=== PATIENT | female | born 1975 ===

== ENCOUNTER 2022-07-06 09:46 | Outpatient (REF) | payer SELFPAY ==
--- NOTE | 2022-07-06 11:16 | MHC.AU.HA3 ---
Hearing Instrument Follow-Up- Binaural Date of Visit: 07/06/22 Right Ear: Hussain, Model, Color, Serial Number: Dawn Egan AI [address] [facility] Serial #: [id number] Color: Medium brown City Attorney Repair Warranty: 07/07/2025 City Attorney Loss and Damage Warranty: 07/07/2025 [facility] Service Plan: 06/22/2023 Battery Size: 312 Thermometer Tester/Slim Tube: 115/50 gain printed circuit boards laminator Type of Wax Guard: Hear Clear Dispensed By: [facility] Date of Fittin06/22/2022 Left Ear: Hussain, Model, Color, Serial Number: Dawn Egan AI [address] [facility] Serial #: [id number] Color: Medium brown City Attorney Repair Warranty: 07/07/2025 City Attorney Loss and Damage Warranty: 07/07/2025 [facility] Service Plan: 06/22/2023 Battery Size: 312 Thermometer Tester/Slim Tube: 115/50 gain printed circuit boards laminator Type of Wax Guard: Hear Clear Dispensed By: [facility] Date of Fittin06/22/2022 Follow-Up Summary: Arrived 20 minutes late to 30 minute appointment. Mindi reported that overall she is doing well with the hearing aids. She is noticing benefit both at home and at work as she is better able to hear speech as well as environmental sounds. She reported that certain sounds (e.g., the microwave, machines beeping at work) are too loud although not uncomfortable. Attempted adjustments; however, Mindi continually preferred the initial settings. Data logging showed only about 2 hours of use per day. With that, counseled extensively on the importance of consistent use especially in acclimating to the hearing aids. Otherwise, the physical fit is reportedly comfortable and she has had no issues with insertion or removal. Recommendations: Hearing instrument maintenance in 6 months, or sooner if needed. Please contact our clinic with any questions or concerns. Diagnosis Code(s):Primary Diagnosis: H90.6 Mixed Hearing Loss, Bilateral Secondary Diagnosis: H69.93 Unspecified Eustachian Tube Dysfunction, Bilateral Signature: Provider: Janet Logan, [facility]
== END 2022-07-06 09:47 | disposition home or self-care (01) ==
LOC: HO.HAP 09:46
PROVIDERS: Visit Provider Internal Medicine
DX: Z13.89 Encounter for screening for other disorder (principal)

== ENCOUNTER 2024-08-28 10:26 | Outpatient (REF) | payer OTHER, SELFPAY ==
--- OUTSIDE RECORDS SUMMARY | 2024-08-28 11:21 | XMS_ITS | Clinical Summary ---
Author Organization [facility] Address [address] [place] [address] Care Team Providers Care Supervisor Costuming Name Role Phone Lorena Monk NP Primary Care Provider Source Comments PLEASE NOTE, if this patient is a minor, it may be UNLAWFUL to discuss sensitive information that is contained in these records (such as FAMILY PLANNING, MENTAL HEALTH or SUBSTANCE ABUSE) with the minor patient's parent or other person without the patient's specific authorization.[facility] Allergies Active Allergy Reactions Criticality Noted Date Comments Yogurt 07/25/2022 Other reaction(s): SORE THROAT, YOGURT Medications omega 9-blp-naa-fish oil 1,000 mg (120 mg-180 mg) capsuleIndicati ons:Elevated LDL cholesterol level Take 1 Capsule by mouth once daily 90 Capsule 1 3 Active valACYclovir (VALTREX) 1 gram tablet Take 1,000 mg by mouth once daily 4 Active loratadine (CLARITIN) 10 mg tablet Take 1 Tablet by mouth once daily as needed for allergies 90 Tablet 3 5 Active calcium carbonate-vit D3-min 600 mg-10 mcg (400 unit) tabletIndicatio ns:Vitamin D deficiency Take 1 Tablet by mouth 3 (three) times daily with meals 90 Tablet 3 5 Active cetirizine (ZYRTEC) 10 mg tabletIndicatio ns:Seasonal allergic rhinitis, unspecified trigger Take 1 Tablet by mouth once daily 90 Tablet 1 3 08/04/19 25 Discontinu ed(Reorder (E-Cancel Not Sent)) calcium carbonate-vit D3-min 600 mg-10 mcg (400 unit) tabletIndicatio ns:Vitamin D deficiency Take 1 Tablet by mouth 3 (three) times daily with meals 90 Tablet 4 08/04/19 25 Discontinu ed(Therapy completed/ Not needed) cetirizine (ZYRTEC) 10 mg tabletIndicatio ns:Seasonal allergic rhinitis, unspecified trigger Take 1 Tablet by mouth once daily 90 Tablet 3 5 08/04/19 25 Discontinu ed(Therapy completed/ Not needed) Active Problems Problem Noted Date Diagnosed Date Overweight (BMI 25.0-29.9) 07/30/2021 Elevated LDL cholesterol level 07/28/2018 Allergic rhinitis 08/06/2016 Prediabetes 08/15/2015 Vitamin D deficiency 07/01/2014 GERD (gastroesophageal reflux disease) 5 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 Meng. Hx of thyroiditis 2011 Overview (12/30/2012): Seen by [facility]. Resolved Problems Problem Noted Date Diagnosed Date Resolved Date S/P x 2 07/25/2022 Overview (12/30/2012): A1. Encounters Date Type Department Care Team Description 08/03/2024 4:00 PM EDT Office Visit [address] [phone] Lorena Monk NP Routine general medical examination at a health care facility (Primary Dx); Cholesteatoma of attic of right ear; Vitamin D deficiency; Seasonal allergic rhinitis, unspecified trigger; Screen for colon cancer from Last 3 Months Immunizations Immunization Administration Dates Next Due Flu, Preservative Free 02/12/2023,02/27/2021, Hep A, adult 10/12/2022 Hep B, Adult/Adol (ENERGIX/RECOMBIVAX) 01/19/2008,11/21/2007,07/22/2007 INFLUENZA, SEASONAL, INJECTABLE 03/13/20 15,04/23/2011,04/20/2010,2008,03/24/2008 MMR (MMR II/Priorix) 11/21/2007,07/22/2007 Moderna COVID-19 (Spikevax), Mrna, Lnp-s, Pf, 50 Mcg/0.5 Ml, 12yr+ 07/31/2023 PPD 10/14/2007 TDAP 05/03/2015,04/22/2011 Td(adult),2 Lf tetanus toxoid,preservative free 11/21/2007,07/22/2007 Family History Medical History Relation Name Comments Diabetes Father High Cholesterol Mother Hypertension Mother Relation Name Status Comments Father Alive Mother Alive Social History Tobacco Use Types Packs/Day Years Used Date Smoking Tobacco: Never Passive Smoke Exposure: Never Smokeless Tobacco: Never Tobacco Cessation:Counseling Given: Yes Alcohol Use Standard Drinks/Week Comments No 0 (1 standard drink = 0.6 oz pur e alcohol) Social Connections Answer Date Recorded Connectedness 1 08/03/2024 Financial Resource Strain Answer Date R ecorded Financial Resource Strain 1 2024 Stress Answer Date Recorded Stress 1 08/03/2024 Physical Activity Answer Date Recorded Physical Activity 0 08/18/2021 Food Insecurity Answer Date Recorded Food 1 08/03/2024 Transportation Needs Answer Date Record ed Transportation 1 08/03/2024 Housing Stability Answer Date Recorded Housing 1 08/03/2024 Safety and Environment Answer Date Maxx rded Safety 1 08/03/2024 Utilities Answer Date Recorded Utilities 1 08/03/2024 Employment Answer Date Recorded Stress 0 08/18/2021 Comments No Sex and Gender Information Value Date Recorded Sex Assigned at Female 04/15/2017 11:28 AM PST Legal Sex Female 11:36 AM PDT Gender Identity Female 04/15/2017 11:28 AM PST Sexual Orientation Straight 04/15/2017 11 :28 AM PST Occupation Industry Job Start Date Job End Date 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 [employer] Not on file Not on file Not on file Last Filed Vital Signs Vital Sign Reading Time Taken Comments Blood Pressure 117/72 10/02/2023 3:21 PM EDT Pulse 69 10/02/2023 3:21 PM EDT Temperature 36.4 ??C (97.5 ??F) 07/31/2023 8:47 AM ED T Respiratory Rate 16 07/31/2023 8:47 AM EDT Oxygen Saturation 100% 07/31/2023 8:47 AM EDT Inhaled Oxygen Concentration - - Weight 49.9 kg (110 lb) 03/02/2024 9:53 AM EDT Height 139.7 cm (4' 7 ) 03/02/2024 9:53 AM EDT Body Mass Index 25.57 03/02/2024 9:53 AM EDT Plan of Treatment Health Maintenance Due Date Last Done Comments Dental FMX/Pano 1977 HPV Screening 1975 Breast Cancer Screening (Mammogram) 2017 CT Colonography 2022 Colonoscopy 2022 Fecal DNA 2022 Flexible Sigmoidoscopy 2022 Dental BW 10/18/2023 10/15/2022, 04/16/2022 [id number] () 01/12/2024 024 Imm-Influenza (#1) 2024 02/12/2023, 1 , 02/20/2018 (Managed by Outside Provider), Additional history exists Colorectal Cancer Screening 03/03/2024 FIT/gFOBT 03/03/2024 03/03/2023 Diabetes Screening 07/30/2024 07/31/2023, 0 07/31/2023, 08/06/2022, Additional history exists Dental Examination 08/01/2024 07/31/2023, 0 10/15/2022, 04/16/2022 Dental Perio Charting 08/01/2024 07/31/2023, 022 Dental Prophy 08/01/2024 07/31/2023, 06/0 09/2022, 04/16/2022 Hypertension Screening (#1) 10/01/2024 Imm-DTaP/Tdap/Td (3 - Td or Tdap) 05/03/2025 05/03/2015, 04/22/2011, 11/21/2007, Additional history exists Annual Preventive Care Visit 08/03/2025, 07/31/2023, 10/12/2022, Additional history exists Anxiety Screening 08/03/2025 08/03/2024 Relationship Safety Screening/Counseling 08/03/2025 08/03/2024, 01/29/2023, 08/18/2021, Additional history exists Tobacco Screening 08/03/2025 08/03/2024, 01/29/2023 Cervical Cancer Screening 10/13/2027 Pap + HPV 10/13/2027 10/12/2022 Pap Smear 10/13/2027 10/12/2022, 03/13, 03/31/2015, Additional history exists Lipid Screening 07/30/2028 07/31/2023, 07/12, 06/12/2021, Additional history exists Imm-Hepatitis B Completed 01/19/2008, 11/10, 07/22/2007 HIV Screening Completed 04/22/2018 Hepatitis C Screening Completed 08/06/2022 Alcohol and Drug Screen Completed 08/04/19 25, 07/31/2023, 07/25/2022, Additional history exists Depression Annual Screen Completed 025, 07/31/2023, 04/22/2018 Cervical Ablation/Cold-Knife Conization Discontinued Cervical Cryotherapy Discontinued Colposcopy Discontinued Endometrial Biopsy Discontinued Excision/Leep Discontinued HPV Genotyping Discontinued Vaginal Pap Discontinued Vulvoscopy Discontinued Procedures Procedure Name Priority Date/Time Associated Diagnosis Comments COMP PERIODONTAL EVALUATION - NEW/EST PATIENT Routine 07/31/2023 1:00 PM EDT Caries of enamel (incipient) Full PROPHYLAXIS - ADULT Routine 07/31/2023 1:00 PM EDT Caries of enamel (incipient) Full PERIODIC ORAL EVALUATION ESTABLISHED PATIENT Routine 07/31/2023 1:00 PM EDT Caries of enamel (incipient) HEMOGLOBIN GLYCOSYLATED A1C Routine 07/31/2023 9:27 AM EDT Routine general medical examination at a health care facility LIPID PANEL Routine 07/31/2023 9:27 AM EDT Routine general medical examination at a health care facility Elevated LDL cholesterol level FECAL GLOBIN BY IMMUNOCHEMISTRY (FIT) Routine 03/03/2023 8:00 PM EDT Colon cancer screening BITEWINGS - FOUR RADIOGRAPHIC IMAGES Routine 10/15/2022 9:40 AM EDT Encounter for dental examination THIN PREP IMAGE PAP + HPV RNA E6/E7 W/RFLX HPV 16, 18/45 Routine 10/12/2022 3:55 PM EDT Well woman exam Routine cervical smear HEPATITIS C AB W/RFLX HCV RNA, QT, RT PCR Routine 08/06/2022 10:30 AM EDT Need for hepatitis C screening test ANTIBODY HIV-1&HIV-2 SINGLE RESULT Routine 04/22/2018 9:42 AM EST Health care maintenance from Last 3 Months or Most Recently Relevant to Health Maintenance Results * (ABNORMAL) HEMOGLOBIN GLYCOSYLATED A1C (07/31/2023 9:27 AM EDT) HEMOGLOBIN A1C 6.1(H) <5.7 % of total Hgb [facility] Comment: For someone without known diabetes, a hemoglobin A1c value between 5.7% and 6.4% is consistent with prediabetes and should be confirmed with a follow-up test. For someone with known diabetes, a value <7% indicates that their diabetes is well controlled. A1c targets should be individualized based on duration of diabetes, age, comorbid conditions, and other considerations. This assay result is consistent with an increased risk of diabetes. Currently, no consensus exists regarding use of hemoglobin A1c for diagnosis of diabetes for children. Blood Blood / Unknown 07/31/2023 9 :27 AM EDT 07/31/2023 9:27 AM EDT Narrative [employer] [facility] [employer] - 08/04/2023 5:12 AM EDT FASTING:YES us Ata Mccall MD LAB - BLOOD DRAW Edited Result - Final [facility] [address] [place] [id number], [facility] [address] [phone] * (ABNORMAL) LIPID PANEL (07/31/2023 9:27 AM EDT) CHOLESTEROL, TOTAL 227(H) <200 mg/dL [facility] HDL CHOLESTEROL 61 > OR = 50 mg/dL [facility] TRIGLYCERIDES 87 <150 mg/dL [facility] LDL-CHOLESTEROL 147(H) 99 mg/dL (calc) [facility] Comment: Reference range: <100 Desirable range <100 mg/dL for primary prevention; ?? <70 mg/dL for patients with CHD or diabetic patients with > or = 2 CHD risk factors. LDL-C is now calculated using the Guera calculation, which is a validated novel method providing better accuracy than the Friedewald equation in the estimation of LDL-C. Isreal STUBBS et al. [place]. 2013;310(19): 5330-9261 (http://education.Fashion Playtes/faq/PQN472) CHOL/HDLC RATIO 3.7 <5.0 (calc) [facility] NON-HDL CHOLESTEROL 166(H) <130 mg/dL (calc) [facility] Comment: For patients with diabetes plus 1 major ASCVD risk factor, treating to a non-HDL-C goal of <100 mg/dL (LDL-C of <70 mg/dL) is considered a therapeutic option. Blood Blood / Unknown 07/31/2023 9 :27 AM EDT 07/31/2023 9:27 AM EDT Narrative [facility] - 08/04/2023 5:12 AM EDT FASTING:YES Ata Mccall MD LAB - BLOOD DRAW Final Result [facility] [address] [place] [phone], [facility] [address] [place] [phone] * FECAL GLOBIN BY IMMUNOCHEMISTRY (FIT) (03/03/2023 8:00 PM EDT) FECAL GLOBIN BY IMMUNOCHEMISTRY See Note [facility] Comment: ??FECAL GLOBIN BY IMMUNOCHEMISTRY ?Micro Number: ?[id number] ??Test Status: ? Final ??Specimen Source: ?? Not given ??Specimen Quality: ??Adequate ??Fecal Globin: ?Not Detected Stool Stool specimen / Unknown 03/03/2023 8:00 PM EDT 03/05/2023 10:45 PM EDT Lorena Monk NP LAB - NO BLOOD DRAW Final Re sult [facility] [address] [place] [id number], [facility] [address] [phone] * THIN PREP IMAGE PAP + HPV RNA E6/E7 W/RFLX HPV 16, 18/45 (10/12/2022 3:55 PM EDT) CLINICAL INFORMATION See Note [facility] Comment:Routine exam LMP See Note [facility] Comment:[id number] PREV. PAP See Note [facility] Comment:NONE GIVEN PREV. BX See Note [facility] Comment:NONE GIVEN SOURCE See Note [facility] Comment:Cervix STATEMENT OF ADEQUACY See Note [facility] Comment: Satisfactory for evaluation. Endocervical/transformation zone component absent. INTERPRETATION/RESU LT See Note [facility] Comment:Negative for intraep ithelial lesion or malignancy. COMMENT See Note [facility] Comment: This Pap test has been evaluated with computer assisted technology. [employer] See Note [facility] [employer] Comment: EXJ, CT(ASCP) CT Screening Location: [place] [address] COMMENT [facility] HPV MRNA E6/E7 Not Detected Not Detected [facility] Comment: Methodology: Broom Handle Dipper-Mediated Amplification This assay detects E6/E7 viral messenger RNA (mRNA) from 14 high-risk HPV types (16,18,31,33,35,39,45,51,52,56,58,59,66,68). Cervical sources are required for HPV testing. If a vaginal source from a patient who has had a total hysterectomy with removal of cervix was submitted, please contact the testing laboratory for alternative testing options. For additional information, please refer to http://education.AppShare/faq/NAC066n7 (This link if provided for information/ educational purposes only.) Swab Cervix uteri structure / Unknown 10/12/2022 3:55 PM EDT 10/15/2022 11:32 AM EDT Narrative [employer] - 10/17/2022 3:29 PM EDT EXPLANATORY NOTE: The Pap is a screening test for cervical cancer. It is not a diagnostic test and is subject to false negative and false positive results. It is most reliable when a satisfactory sample, regularly obtained, is submitted with relevant clinical findings and history, and when the Pap result is evaluated along with historic and current clinical information. us Lorena Monk NP LAB - NO BLOOD DRAW Final Re sult Performing Organization Address [facility] Co de Phone Number [facility] [address] [place] [id number], [facility] [address] [place] [phone] * HEPATITIS C AB W/RFLX HCV RNA, QT, RT PCR (08/06/2022 10:30 AM EDT) HEPATITIS C ANTIBODY NON-REACT JERALD NON-REACT JERALD [facility] SIGNAL TO CUT-OFF 0.04 <1.00 [facility] Comment: HCV antibody was non-reactive. There is no laboratory evidence of HCV infection. In most cases, no further action is required. However, if recent HCV exposure is suspected, a test for HCV RNA (test code 74254) is suggested. For additional information please refer to http://education.AppShare/faq/NHC49n8 (This link is being provided for informational/ educational purposes only.) Blood Blood / Unknown 08/06/2022 1 0:30 AM EDT 08/06/2022 10:31 AM EDT Narrative [employer] [facility] - 08/07/2022 2:17 AM EDT FASTING:YES us Lorena Monk CATH LAB MANAGER LAB - BLOOD DRAW Final Resul t Performing Organization Address [facility] Co de Phone Number [facility] [address] [place] [phone], [facility] [address] [phone] * HIV-1 & HIV-2 ANTIBODIES (04/22/2018 9:42 AM EST) [facility] Signature HIV 1 AND 2 ANTIBODY SCREEN NEGATIVE NEGATIVE [facility] Comment: This assay is a 4th generation assay allowing for earlier detection of HIV infection by detecting the presence of the HIV-1 p24 antigen as well as the traditional antibodies to HIV type 1 (including group O) and type 2. ??Use of a 4th generation assay is the current CDC recommendation for HIV screening. Blood specimen (specimen) Blood / Unknown 04/22/2018 9:42 AM EST 04/22/2018 9:[address] [facility] - 04/22/2018 1:24 PM EST [employer], [place] [address] Program Writer - Lakisha Zuniga MD [place] [id number] ORD# [id number] Ata Mccall MD LAB - BLOOD DRAW Final Result [address] [address], from Last 3 Months or Most Recently Relevant to Health Maintenance Insurance [employer] [place] [place] [address] DENTAL [facility]) Member Subscriber Plan / Payer (Ef fective 2022-Present) Name:Mindi Cates Relation to Subscriber:Self Name:Mindi Cates Payer ID:[id number] Group ID:Not on file Type:Indemnity Address: [address] [place] [id number] [employer] Care Teams Supervisor Costuming Relationship Specialty Start Date End Date Lorena Monk NP [address] [place] [address] PCP - General Internal Medicine 06/13/22
--- OUTSIDE RECORDS SUMMARY | 2024-08-28 11:22 | XMS_ITS | Data Portability ---
Author Organization [place] - [facility], Allergy Address [address] [facility] [address] [place] [address] Care Team Providers Care Battery Container Tester Name Role Phone LYSSA TOMAS Primary Care Provider Assessment Encounter Date Assessment Date Assessment LastModified by Organization Details LastModified Time 04/21/2024 04/21/2024 Both ears appear stable. No sign of recurrent cholesteatoma. Left tympanic membrane perforation is stable and providing ventilation to the middle ear space and therefore does not require any intervention. Recommend continuing with observation. Follow-up with PA in 1 year Not available 04/20/2024 15:31:34 Plan of Treatment Reminders Order Date Submit Date Provider Last Modified By Organization Details Last Modified Time Details Appointments Establish ed 10 2024 09:30A M JITENDRA KEITA MD Not available Not available Not available Lab None recorded. Referral None recorded. Procedures None recorded. Surgeries None recorded. Imaging None recorded. Medication Orders None recorded. Patient TargetsNo targets recorded. Patient InstructionsNo instructions recorded. Reason for Referral None Reported. Problems Name Problem SNOMED Code Status Onset Date Resolution Date Notes Provider Name and Address Organization Details Recorded Time Abnormal granulat ion tissue 05603136 Completed 201312/13/2023 Other abnormal granulat ion tissue; Note: Date Diagnose d: 04/06/20 14 3:41 PM (701.5) Not Available [facility] 4 02:59:24 Mixed conducti ve and sensorin eural hearing loss, bilatera l 079211686 Active 2015 Mixed conducti ve and sensorin eural hearing loss, bilatera l; Note: Date Diagnose d: 6 11:07 AM (H90.6) Not Available [facility] 4 02:59:24 Impacted cerumen in left ear 68509149779 06615 Active 2021 Impacted cerumen, left ear; Note: Date Diagnose d: 2 4:16 PM (H61.22) Not Available [facility] 4 02:59:21 Allergic rhinitis 28121026 Active 2015 Allergic rhinitis , unspecif ied; Note: Date Diagnose d: 6 2:55 PM (J30.9) [facility] 4 02:59:23 Mixed conducti ve and sensorin eural hearing loss of right ear 82251158593 105 Active 2016 Mixed conducti ve and sensorin eural hearing loss, unilater al, right ear with restrict ed hearing on the contrala teral side; Note: Date Diagnose d: 01/15/2017 11:00 AM (H90.A31 ) Not Available [facility] 4 02:59:20 Dysfunct ion of eustachi an tube 58819084 Active 2013 Eustachi an tube dysfunct ion; Note: Date Diagnose d: 4 12:48 PM (381.81) Not Available [facility] 4 02:59:23 Jaw pain 211888646 Active 2015 Periauri cular pain of TMJ origin; Note: Date Diagnose d: 5 10:06 AM (784.92) ; Start Date : 10/27/19 15 Jaw pain; Note: Date Diagnose d: 6 2:44 PM (R68.84) [mapped from ICD9 code: 784.92] Not Available [facility] 4 02:59:23 Impacted cerumen 84607485 Active 2013 Impacted cerumen; Note: Date Diagnose d: 4 12:48 PM (380.4) Not Available [facility] 4 02:59:20 Conducti ve hearing loss, bilatera l 925799071 Active 2021 Conducti ve hearing loss, bilatera l; Note: Date Diagnose d: 2 4:16 PM (H90.0) Not Available [facility] 4 02:59:21 Bilatera l temporom andibula r joint pain 47195617985 986884 Active 2018 Arthralg ia of bilatera l temporom andibula r joint; Note: Date Diagnose d: 9 2:07 PM (M26.623 ) Not Available [facility] 4 02:59:24 Marginal perforat ion of tympanic membrane 39912967 Active 2021 Other marginal perforat ions of tympanic membrane , left ear; Note: Date Diagnose d: 2 4:15 PM (H72.2X2 ) Not Available 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 4 02:59:23 Sensorin eural hearing loss in left ear 82997336072 109 Active 2016 Sensorin eural hearing loss, unilater al, left ear, with restrict ed hearing on the contrala teral side; Note: Date Diagnose d: 01/15/2017 11:00 AM (H90.A22 ) Not Available [facility] 4 02:59:22 Disorder of left Eustachi an tube 14064361746 26582 Active 2015 Other specifie d disorder s of Eustachi an tube, left ear; Note: Date Diagnose d: 6 2:58 PM (H69.82) Not Available [facility] 4 02:59:21 Follow-u p visit Active 2016 Medical surveill ance followin g complete d treatmen t; Note: Date Diagnose d: 7 3:19 PM (Z09) Not Available [facility] 4 02:59:22 Problem Notes None recorded. Medical Equipment None Reported. Allergies No known drug allergies Medications Name Sig Start Date Stop Date Status Note LastModified by Organization Details LastModified Time cetirizin e 10 mg tablet 04/21 completed Not Available Not Available Not Available valacyclo vir 1 gram tablet TAKE 1 TABLET BY MOUTH EVERY 12 HOURS FOR 5 DAYS 04/21 completed Not Available Not Available Not Available Ciloxan 0.3 % eye drops 04/21 completed Medicati on ID: [id number] D uration Value: 14 Prescri bed By Name: MASSIEL Morales nd Name: Ciloxan Send Method: E-Prescr ibed Sub s Allowed: subs OK Speci al Instruct ion: Instill 4 drops twice a day into the affected ear Medi cationGe nericNam e: Ciloxan Not Available Not Available Not Available omeprazol e 20 mg capsule,d elayed release 08/23 completed Medicati on ID: [id number] D uration Value: 90 Brand Name: omeprazo le Send Method: E-Prescr ibed Sub s Allowed: subs OK Medic ationGen ericName : omeprazo le Not Available Not Available Not Available methylpre dnisolone 4 mg tablets in a dose pack TAKE 1 TABLET (ORAL) PER PACKAGE DIRECTIO NS FOLLOW DIRECTIO NS PER PACK, TAKE WITH FOOD 04/21 completed Not Available Not Available Not Available Pelham 5 mg-325 mg tablet 1-2 tablet by mouth 04/21 completed Medicati on ID: [id number] D uration Value: 7 Prescri bed By Name: Tunde Feliz nd Name: Pelham Se nd Method: E-Prescr ibed Sub s Allowed: subs OK Medic ationGen ericName : Pelham Not Available Not Available Not Available amoxicill in 875 mg-potass ium clavulana te 125 mg tablet TAKE 1 TABLET BY MOUTH TWICE A DAY 04/21 completed Not Available Not Available Not Available TobraDex 0.3 %-0.1 % eye drops,yohan pension 4 drop 04/21 completed Medicati on ID: [id number] D uration Value: 14 Prescri bed By Name: Jitendra Keita M.D. Bra nd Name: TobraDex Send Method: E-Prescr ibed Sub s Allowed: subs OK Speci al Instruct ion: apply to affected ear(s) Abena hogan nGeneric Name: TobraDex Not Available Not Available Not Available diclofena c 1 % topical gel 04/15 completed Medicati on ID: [id number] B rand Name: diclofen ac sodium S end Method: E-Prescr ibed Sub s Allowed: subs OK Medic ationGen ericName : diclofen ac sodium Not Available Not Available Not Available GaviLyte- G 236 gram-22.7 4 gram-6.74 gram-5.86 gram oral solution PLEASE SEE ATTACHED FOR DETAILED DIRECTIO NS 04/21 completed Not Available Not Available Not Available Vitals None Recorded Social History None recorded. Functional Status None recorded. Mental Status None recorded. Family History Nothing Reported. Medical History Condition Response Allergies/Hayfever Y GERD/Reflux Y Gynecological HistoryNo gynecological history recorded. Obstetrics History GPAL:G 0 P 0 0 0 0 Past Encounters Encounter ID Performer Location Encounter Start Date Encounter Closed Date Diagnosis/Indication Diagnosis SNOMED-CT Code Diagnosis ICD10 Code Diagnosis Note [id number] JITENDRA KEITA MD [facility] [address] [address] 04/21/2024 09:46:59 04/21/2024 10:26:49 Disorder of left Eustachian tube [id number] 823398 H69.82 Marginal p erforation of tympanic membrane 20828595 H72.2X2 Mixed cond uctive and sensorineural hearing loss, bilateral 324810250 H90.6 Patient will continue to follow-up at [facility] audiology for updated audiometri c testing and continued hearing aid porsha ruiz. She is due for updated audiometri c testing and she will contact them to arrange this. Health Concerns Section Related Observation LastModified by Organization Detai ls LastModified Time None Recorded Concern Status LastModified by Organization Details LastModified Time None Recorded Advance Directives Directive None Recorded Payers Encounter Date Sequence Insurance Name Policy Number Policy Parker Covered Member ID Parker Member ID Guarantor Name 04/21/[address] [place] [address] [id number] Mindi Cates [id number] Mindi Cates Notes Date Note Type Note Provider Name and Address Organization Details Recorded Time 04/21/2024 text/html 48 year old cruzito alvarenga with long history of ear disease. She has history of right-sided cholesteatoma which was excised in two stages back in 2011 and 2012. She had left-sided tympanoplasty with atticotomy and T-tube placement back in 2017 which did not require second stage surgery. Patient had a T tube in the left ear for several years which ultimately extruded. Patient now has a small perforation and the anterosuperior quadrant of the drum which we are observing in light of the underlying eustachian tube dysfunction. She comes back today for reevaluation. No pain or discharge.She did get binaural hearing aids through [facility]. She has concerns about cerumen accumulation JITENDRA KEITA MD [address] [place] [address], [phone], [facility] - [facility] 04/21/2024 10:25:22 OBGyn Episode No OBEpisode recorded.
--- OUTSIDE RECORDS SUMMARY | 2024-08-28 11:22 | XMS_ITS | Clinical Summary ---
Author Organization [address] [place] [address] Address [address] [place] [address] Phone Care Team Providers Care Batch Plant Operator Name Role Phone Lorena Monk Primary Care Provider [phone] Allergies Active Allergy Reactions Criticality Noted Date Comments Polydextrose Sore Throat 08/07/2024 YOGURT Medications valACYclovir (VALTREX) 1 gram tablet Take 1 tablet (1,000 mg total) by mouth 1 (one) time each day. Active omega 9-hiy-wio-fish oil 300 mg (120 mg- 180mg)-1,000 mg capsule Take 1 capsule by mouth 1 (one) time each day. Active loratadine (CLARITIN) 10 mg tablet Take 1 tablet (10 mg total) by mouth 1 (one) time each day. Active Encounters Date Type Department Care Team Description 08/07/2024 Telephone Gastroenterology - [place] [address] [place] [id number] Rajani Amador MD special procedure from Last 3 Months Surgical History Surgery Date Site/Laterality Comments SECTION PROCEDURE: HISTORICAL DELIVERY; COMMENT: x2 Social History Tobacco Use Types Packs/Day Years Used Date Smoking Tobacco: Never Smokeless Tobacco: Never Alcohol Use Standard Drinks/Week Comments No 0 (1 standard drink = 0.6 oz pur e alcohol) Comments Unknown Sex and Gender Information Value Date Recorded Sex Assigned at Female 08/10/2024 1:38 PM EDT Legal Sex Female 9:15 PM EST Gender Identity Female 08/10/2024 1:38 PM EDT Sexual Orientation Not on file Obstetrics History Plan of Treatment Health Maintenance Due Date Last Done Comments Breast Cancer Screening 1977 DTaP,Tdap,and Td Vaccines (1 - Tdap) 1996 Hepatitis B Vaccines (1 of 3 - 19+ 3-dose series) 1996 Cervical Cancer Screening: P ap Smear 1998 COVID-19 Vaccine ( - 2023-2 5 season) 2024 Colorectal Cancer Screening: Colonoscopy 03/02/2024 Depression Screening 03/02/2024 HIV Screening 03/02/2024 Hepatitis C Screening 03/02/2024 Social Influencers of Health Screening 03/02/2024 Influenza Vaccine (Season Ended) 2025 HIB Vaccines Aged Out No longer eligi ble based on patient's age to complete this topic HPV Vaccines Aged Out No longer eligi ble based on patient's age to complete this topic Hepatitis A Vaccines Aged Out No long er eligible based on patient's age to complete this topic IPV Vaccines Aged Out No longer eligi ble based on patient's age to complete this topic MMR Vaccines Aged Out No longer eligi ble based on patient's age to complete this topic Meningococcal ACWY Vaccine Aged Out N o longer eligible based on patient's age to complete this topic Meningococcal B Vaccine Aged Out No l onger eligible based on patient's age to complete this topic Pneumococcal Vaccine: Pediat rics (0 to 5 Years) and At-Risk Patients (6 to 64 Years) Aged Out No longer eligible b ased on patient's age to complete this topic RSV Immunization Patients Un mariam 20 months Aged Out No longer eligible b ased on patient's age to complete this topic Varicella Vaccines Aged Out No longer eligible based on patient's age to complete this topic Insurance [facility] [address] [place] [id number] Care Teams Batch Plant Operator Relationship Specialty Start Date End Date Lorena Monk [address] [place] [address] PCP - General 08/07/24
--- NOTE | 2024-08-28 13:09 | MHC.AU.HA3 ---
Hearing Instrument Follow-Up- Binaural Date of Visit: 08/28/24 Right Ear: Hussain, Model, Color, Serial Number: Dawn Hinsonv AI [address] Serial #: [id number] Color: Medium brown Customs Manager Repair Warranty: 07/07/2025 Customs Manager Loss and Damage Warranty: 07/07/2025 [facility] Service Plan: 06/22/2023 Battery Size: 312 Child Therapist/Slim Tube: 115/50 gain glazier metal furniture Earmold/Dome/CShell/SlimTip:NA Type of Wax Guard: Hear Clear Dispensed By: [facility] Date of Fittin06/22/2022 Left Ear: Hussain, Model, Color, Serial Number: Dawn Hinsonv AI [address] Serial #: [id number] Color: Medium brown Customs Manager Repair Warranty: 07/07/2025 Customs Manager Loss and Damage Warranty: 07/07/2025 [facility] Service Plan: 06/22/2023 Battery Size: 312 Child Therapist/Slim Tube: 115/50 gain glazier metal furniture Earmold/Dome/CShell/SlimTip: NA Type of Wax Guard: Hear Clear Dispensed By: [facility] Date of Fittin06/22/2022 Follow-Up Summary: Mindi is here for evaluation and hearing aid management. States she has had her hearing tested at Dr Meng's office annually, but chose it have it done here this year as she is also having difficulties with her hearing aids. Last test on file dated 04/27/22. She states she cannot hear from her hearing aids. Testing today shows stable thresholds right ear, significant improvement in air conduction thresholds left ear. Pt is not sure when this improvement occurred. Cleaned aids, replaced nissa covers, wax guards, removed debris from mics and vents. Listening check ok. Connected to Inspire, left is set significantly above current targets as aids are programmed to previous audiogram. Adjusted to new audiogram, patient reported comfortable sound quality. Will call for further adjustments if needed. Recommendations: Recommendations: Hearing instrument follow-up or maintenance as needed. Patient will call if problems persist. Diagnosis Code(s): Primary Diagnosis: H90.6 Mixed Hearing Loss, Bilateral Signature: Provider: Chad Evans, [facility]
== END 2024-08-28 10:27 | disposition home or self-care (01) ==
LOC: HO.SH 10:26
PROVIDERS: Visit Provider Nurse Practitioner
DX: Z01.118 Encounter for examination of ears and hearing with other abnormal findings (principal); H90.6 Mixed conductive and sensorineural hearing loss, bilateral
CPT/HCPCS: 92557; 92593; 99499

== ENCOUNTER 2025-03-29 12:05 | Outpatient (REF) | payer SELFPAY | END 2025-03-29 12:06 | disposition home or self-care (01) | LOC: HO.HAP 12:05 | PROVIDERS: Visit Provider Nurse Practitioner | DX: Z46.1 Encounter for fitting and adjustment of hearing aid (principal); H90.6 Mixed conductive and sensorineural hearing loss, bilateral; H69.93 Unspecified Eustachian tube disorder, bilateral | CPT/HCPCS: V5267 ==

== ENCOUNTER 2025-04-12 10:07 | Outpatient (REF) | payer SELFPAY ==
--- OUTSIDE RECORDS SUMMARY | 2025-04-12 12:23 | XMS_ITS | Data Portability ---
Author Organization [place] - [facility], Allergy Address [address] [facility] [address] [place] [address] Care Team Providers Care Milling General Superintendent Name Role Phone LYSSA TOMAS Primary Care Provider [phone] Assessment Encounter Date Assessment Date Assessment LastModified [...] instructions recorded. Reason for Referral None Reported. Results Created Date Observation Date Name Description Value Unit Range Abnormal Flag Note LastModifiedBy Organization Detail LastModifiedTime 08/29/19 25 08/28/2024 audio gram No observ ation record ed. [email or web address] Not Available 2024 16:34:41 Result Notes None recorded. Problems Name Problem SNOMED Code Status Onset Date Resolution Date Notes Provider Name and Address Organization Details Recorded Time Dysfunct ion of eustachi an tube 67245650 Active 2013 Eustachi an tube dysfunct ion; Note: Date Diagnose d: 4 12:48 PM (381.81) Not Available [facility] 4 02:59:23 Impacted cerumen 16533444 Active 2013 Impacted cerumen; Note: Date Diagnose d: 4 12:48 PM (380.4) Not Available [facility] 4 02:59:20 Abnormal granulat ion tissue 47168997 Completed 201312/13/2023 Other abnormal granulat ion tissue; Note: Date Diagnose d: 04/06/20 14 3:41 PM (701.5) Not Available [facility] 4 02:59:24 Allergic rhinitis 76365085 Active 2015 Allergic rhinitis , unspecif ied; Note: Date Diagnose d: 6 2:55 PM (J30.9) Not Available [facility] 4 02:59:23 Jaw pain 364418234 Active 2015 Periauri cular pain of TMJ origin; Note: Date Diagnose d: 5 10:06 AM (784.92) ; Start Date : 10/27/19 15 Jaw pain; Note: Date Diagnose d: 6 2:44 PM (R68.84) [mapped from ICD9 code: 784.92] Not Available [facility] 4 02:59:23 Disorder of left Eustachi an tube 59923018678 18860 Active 2015 Other specifie d disorder s of Eustachi an tube, left ear; Note: Date Diagnose d: 6 2:58 PM (H69.82) Not Available [facility] 4 02:59:21 Mixed conducti ve and sensorin eural hearing loss, bilatera l 499538238 Active 2015 Mixed conducti ve and sensorin eural hearing loss, bilatera l; Note: Date Diagnose d: 6 11:07 AM (H90.6) Not Available [facility] 4 02:59:24 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 19243919978 29480 Completed 201512/13/2023 Choleste atoma of attic, left ear; Note: Date Diagnose d: 6 11:03 AM (H71.02) Not Available [facility] 4 02:59:23 Follow-u p visit Active 2016 Medical surveill ance followin g complete d treatmen t; Note: Date Diagnose d: 7 3:19 PM (Z09) Not Available [facility] 4 02:59:22 Mixed conducti ve and sensorin eural hearing loss of right ear 32122162974 105 Active 2016 Mixed conducti ve and sensorin eural hearing loss, unilater al, right ear with restrict ed hearing on the contrala teral side; Note: Date Diagnose d: 01/15/2017 11:00 AM (H90.A31 ) [facility] 4 02:59:20 Sensorin eural hearing loss in left ear 15423208037 109 Active 2016 Sensorin eural hearing loss, unilater al, left ear, with restrict ed hearing on the contrala teral side; Note: Date Diagnose d: 01/15/2017 11:00 AM (H90.A22 ) Not Available [facility] 4 02:59:22 Bilatera l temporom andibula r joint pain 95833387666 288750 Active 2018 Arthralg ia of bilatera l temporom andibula r joint; Note: Date Diagnose d: 9 2:07 PM (M26.623 ) Not Available [facility] 4 02:59:24 Impacted cerumen in left ear 28971118081 12525 Active 2021 Impacted cerumen, left ear; Note: Date Diagnose d: 2 4:16 PM (H61.22) Not Available [facility] 4 02:59:21 Conducti ve hearing loss, bilatera l 468731058 Active 2021 Conducti ve hearing loss, bilatera l; Note: Date Diagnose d: 2 4:16 PM (H90.0) Not Available [facility] 4 02:59:21 Marginal perforat ion of tympanic membrane 38537656 Active 2021 Other marginal perforat ions of tympanic membrane , left ear; Note: Date Diagnose d: 2 4:15 PM (H72.2X2 ) Not Available [facility] 4 02:59:22 Problem Notes None recorded. Medical [...] eye drops 04/21 completed Medicati on ID: [id number] D uration Value: 14 Prescri bed By Name: MASSIEL Morales nd Name: Ciloxan Send Method: E-Prescr ibed Sub s Allowed: subs OK Speci al Instruct ion: Instill 4 drops twice a day into the affected ear Medi cationGe nericNam e: Ciloxan Not Available Not Available Not Available omeprazol e 20 mg capsule,d elayed release 08/23 completed Medicati on ID: [id number] D uration Value: 90 Brand Name: omeprazo le Send Method: E-Prescr ibed Sub s Allowed: subs OK Medic ationGen ericName : omeprazo le Not Available Not Available Not Available methylpre dnisolone 4 mg tablets in a dose pack TAKE 1 TABLET (ORAL) PER PACKAGE DIRECTIO NS FOLLOW DIRECTIO NS PER PACK, TAKE WITH FOOD 04/21 completed Not Available Not Available Not Available Gypsy 5 mg-325 mg tablet 1-2 tablet by mouth 04/21 completed Medicati on ID: [id number] D uration Value: 7 Prescri bed By Name: Tunde Feliz nd Name: Gypsy Se nd Method: E-Prescr ibed Sub s Allowed: subs OK Medic ationGen ericName : Gypsy Not Available Not Available Not Available amoxicill in 875 mg-potass ium clavulana te 125 mg tablet TAKE 1 TABLET BY MOUTH TWICE A DAY 04/21 completed Not Available Not Available Not Available TobraDex 0.3 %-0.1 % eye drops,yohan pension 4 drop 04/21 completed Medicati on ID: [id number] D uration Value: 14 Prescri bed By Name: Jitendra Keita M.D. Bra nd Name: TobraDex Send Method: E-Prescr ibed Sub s Allowed: subs OK Speci al Instruct ion: apply to affected ear(s) M jauntio nGeneric Name: TobraDex Not Available Not Available Not Available diclofena c 1 % topical gel 04/15 completed Medicati on ID: [id number] B rand Name: diclofen ac sodium S [...] Diagnosis SNOMED-CT Code Diagnosis ICD10 Code Diagnosis IMO Codes Diagnosis Note [id number] JITENDRA KEITA MD [facility] [address] [address] 04/21/2024 09:46:59 04/21/2024 10:26:49 Disorder of left Eustachian tube 4487762700 955697 H69.82 Marginal p erforation of tympanic membrane 13305482 H72.2X2 Mixed cond uctive and sensorineural hearing loss, bilateral 834639257 H90.6 Patient will continue to follow-up at [facility] audiology for updated audiometri c testing and continued hearing aid porsha lopez She is due for updated audiometri c testing and she will contact them to arrange this. Health Concerns Section Related Observation LastModified by Organization Detai ls LastModified Time None Recorded Concern Status LastModified by Organization Details LastModified Time None Recorded Advance Directives Directive None Recorded Payers Insurance Date Sequence Insurance Name Policy Number Policy Parker Covered Member ID Parker Member ID Guarantor Name 04/21/[address] [place] [address] [id number] Mindi Cates [id number] Mindi Cates Notes Date Note Type Note Provider Name and Address Organization Details Recorded Time 04/21/2024 text/html 48 year old female with long history of ear disease. She [...] discharge.She did get binaural hearing aids through [facility]. She has concerns about cerumen accumulation JITENDRA KEITA MD [address] [place] [address], [place], [address], [facility] - [facility] 04/21/2024 10:25:22 OBGyn Episode No OBEpisode recorded.
== END 2025-04-12 10:08 | disposition home or self-care (01) ==
LOC: HO.HAP 10:07
PROVIDERS: Visit Provider Internal Medicine
DX: H90.6 Mixed conductive and sensorineural hearing loss, bilateral (principal); H69.93 Unspecified Eustachian tube disorder, bilateral
CPT/HCPCS: 92593